=== PATIENT | female | born 1995 | race Caucasian/White ===

== ENCOUNTER 2017-06-28 19:14 | Emergency (ER) | payer OTHER ==
[~2017-06-28] VITALS: Ht 177.8 cm; Wt 93.9 kg
[~2017-06-28 19:14] MED LIST: AUGMENTIN PO; CIPRO PO; LORTAB 7.5-3251 EACH PO; NO HOME MEDS
== END 2017-06-28 21:41 | disposition home or self-care (01) ==
LOC: CED 19:14 → CFTX 19:14
DX: J02.0 Streptococcal pharyngitis (principal); J45.909 Unspecified asthma, uncomplicated; F17.200 Nicotine dependence, unspecified, uncomplicated; Z88.5 Allergy status to narcotic agent
CPT/HCPCS: 87880; 99283